=== PATIENT | female | born 2005 | race Hispanic/Latino ===

== ENCOUNTER 2024-10-01 16:21 | Emergency (ER) | payer MEDICAID, SELFPAY ==
[2024-10-01] MEDS ORDERED: Ketorolac Tromethamine 30 MG (1 mL) VIAL ONE (17:48)
[2024-10-01] MEDS ORDERED: Ondansetron ODT 4 MG TAB ONE (17:49)
== END 2024-10-01 18:12 | disposition home or self-care (01) ==
LOC: ERS 16:21
DX: J11.1 Influenza due to unidentified influenza virus with other respiratory manifestations (principal)
CPT/HCPCS: 87428; 96372; 99283; J1885; Q0162